=== PATIENT | female | born 1990 | race Hispanic/Latino ===

== ENCOUNTER 2016-08-16 22:18 | Emergency (ER) | payer BC, OTHER ==
[2016-08-16 22:28] VITALS: BP 122/70; PULSE 57; RESP 16; TEMP 97.9; O2SAT 100
[2016-08-16] MEDS ORDERED: Albuterol-Ipratrop 3 mg / 0.5 (3 ml) UD ONE (23:12)
[2016-08-16] MEDS ORDERED: Albuterol-Ipratrop 3 mg / 0.5 (3 ml) UD INH STA (23:13)
--- NOTE | 2016-08-16 23:14 | ED PDOC ---
HPI: Chest Pain Time Seen by Provider: 08/16/16 22:41 Chief Complaint (Nursing): Chest Pain Chief Complaint (Provider): Chest Pain History Per: Patient Additional Complaint(s): To ED for evaluation of nonradiating midsternal chest pain and shortness of breath x 8 hours. Past Medical History Vital Signs: Last Vital Signs Temp 97.9 F 08/16/16 22:26 Pulse 57 L 08/16/16 22:26 Resp 16 08/16/16 22:26 BP 122/70 08/16/16 22:26 Pulse Ox 100 08/16/16 22:26 - Allergies Allergies/Adverse Reactions: Allergies Allergy/AdvReac Type Severity Reaction Status Date / Time No Known Allergies Allergy Verified 08/16/16 22:26 - ECG O2 Sat by Pulse Oximetry: 100
--- NOTE | 2016-08-17 08:01 | CARD ---
APPROVED REPORT EKG Measurement Heart [id number] <Conclusion> Sinus bradycardia Nonspecific ST abnormality Abnormal ECG
--- NOTE | 2016-08-17 08:37 | RAD ---
HISTORY: sob/cp COMPARISON: No prior. TECHNIQUE: Chest PA and lateral FINDINGS: LUNGS: 2 centimeter vague opacity overlying the projection of the 9th posterior rib on the right. This is a nonspecific finding. PLEURA: No significant pleural effusion identified. No pneumothorax apparent. CARDIOVASCULAR: Normal. OSSEOUS STRUCTURES: No significant abnormalities. VISUALIZED UPPER ABDOMEN: Normal. OTHER FINDINGS: None. IMPRESSION: 2 centimeter vague opacity overlying the projection of the 9th posterior rib on the right. This is a nonspecific finding. Follow-up with chest CT recommended.
== END 2016-08-17 01:10 | disposition home or self-care (01) ==
LOC: H.ER 22:18
DX: R06.02 Shortness of breath (principal); R07.89 Other chest pain